=== PATIENT | male | born 1995 | race African-American/Black ===

== ENCOUNTER 2024-01-13 12:17 | Emergency (ER) | payer BC ==
[~2024-01-13] VITALS: Ht 193 cm; Wt 104.2 kg
[2024-01-13 12:45] VITALS: BP 139/76; PULSE 93; RESP 18; O2SAT 98
[2024-01-13] MEDS ORDERED: CEPH500C PO (16:16)
[2024-01-13] MEDS ORDERED: MUPI2OIN2 EX (16:16)
[2024-01-13] MEDS ORDERED: BACDST PO (16:16)
[2024-01-13] MEDS: cefTRIAXone SOD 1,000 MG VL IM ONE (16:29)
== END 2024-01-13 17:26 | disposition left against medical advice (07) ==
LOC: ER 12:17
DX: L02.01 Cutaneous abscess of face (principal)
CPT/HCPCS: 96372; 99283; J0696